=== PATIENT | male | born 1965 ===

== ENCOUNTER 2017-10-13 07:12 | Day surgery (SDC) | payer MEDICARE ==
[2017-09-23 16:29] VITALS: BMI 25.4
[2017-10-13] MEDS ORDERED: Lactated Ringer's 1,000 ML IV ONE (07:54)
[2017-10-13] MEDS ORDERED: Propofol 10 mg/ml Inj (20 ML) ONE ×4 (08:03→08:36)
[2017-10-13 09:14] VITALS: TEMP 98.9
[2017-10-13 10:17] VITALS: O2SAT 99
[2017-10-13 10:47] VITALS: BP 123/80; PULSE 80; RESP 14
== END 2017-10-13 10:25 | disposition home or self-care (01) ==
LOC: C.ENDO 07:12
PROVIDERS: ATTEND Internal Medicine
DX: R93.3 Abnormal findings on diagnostic imaging of other parts of digestive tract (principal); K62.5 Hemorrhage of anus and rectum; R19.4 Change in bowel habit; Z82.49 Family history of ischemic heart disease and other diseases of the circulatory system; K57.30 Diverticulosis of large intestine without perforation or abscess without bleeding; K60.3 Anal fistula; K62.1 Rectal polyp
CPT/HCPCS: 45380; 87045; 87177; 87209; 87230; 88305; 88342; J2704; J7120

== ENCOUNTER 2017-11-03 12:00 | Day surgery (SDC) | payer MEDICARE ==
[2017-11-03 12:33] VITALS: TEMP 97.1; BMI 27.3
[2017-11-03] MEDS ORDERED: Propofol 10 mg/ml Inj (20 ML) ONE ×2 (13:32)
[2017-11-03] MEDS ORDERED: Lidocaine Hydrochloride 5 ML INJ ONE (13:33)
[2017-11-03] MEDS ORDERED: cefTRIAXone (Rocephin) 250 mg Inj IM STA (14:17)
[2017-11-03 15:30] VITALS: BP 136/81; PULSE 70; RESP 12; O2SAT 94
== END 2017-11-03 15:15 | disposition home or self-care (01) ==
LOC: C.ENDO 12:00
PROVIDERS: ATTEND Internal Medicine
DX: R93.5 Abnormal findings on diagnostic imaging of other abdominal regions, including retroperitoneum (principal); K62.9 Disease of anus and rectum, unspecified; A63.0 Anogenital (venereal) warts; K60.4 Rectal fistula
CPT/HCPCS: 46606; 87491; 87591; 88305; J0696; J2704